=== PATIENT | male | born 1955 | race Caucasian/White ===

== ENCOUNTER 2020-06-04 12:34 | Outpatient (CLI) | payer MEDICARE, OTHER, SELFPAY ==
--- NOTE | 2020-06-04 12:46 | ECHO_ITS ---
Patient Info Name: Simone Weller Age: 65 years : 1955 Gender: Male Ht: 66 in Wt: 298 lbs BSA: 2.59 m2 HR: 65 bpm BP: 139 / 78 mmHg Technical Quality: Good Exam Date: 06/04/2020 12:58 PM Exam Location: [facility] Patient Status: Outpatient Admit Date: 06/04/2020 Staff Ordering Physician: Matt Hernandez DO Restaurant Crew Person: Saima Burnette RDCS Attending Provider: Matt Hernandez DO Referring Physician: David ENAMORADO; Exam Type: CA echo doppler color flow Study Info Indications I35.0 - Nonrheumatic aortic (valve) stenosis Complete two-dimensional, color flow and Doppler transthoracic echocardiogram is performed. Summary 1. Complete two-dimensional, color flow and Doppler transthoracic echocardiogram is performed. 2. Left ventricular chamber dimension is normal. 3. Left ventricular systolic function is normal, estimated at 60-65%. 4. There is moderately increased left ventricular wall thickness. 5. The left ventricular diastolic function is grade I diastolic dysfunction. 6. There is moderate aortic valve sclerosis. 7. There is moderate aortic valve stenosis with a peak velocity of 283 cm/s, mean gradient of 15 mmHg, and aortic valve area of 1.4 cm2. 8. The mitral valve has moderately calcified annulus. 9. There is trace mitral valve regurgitation. 10. There is trace tricuspid valve regurgitation. Left Ventricle Tissue doppler is not performed. Left ventricular chamber dimension is normal. Left ventricular systolic function is normal, estimated at 60-65%. There is moderately increased left ventricular wall thickness. The left ventricular diastolic function is grade I diastolic dysfunction. Right Ventricle Right ventricular chamber dimension is normal. Right ventricular systolic function is normal. Left Atria Left atrial chamber dimension is normal. Right Atria Right atrial chamber dimension is normal. Aortic Valve The aortic valve is trileaflet. There is moderate aortic valve sclerosis. There is moderate aortic valve stenosis with a peak velocity of 283 cm/s, mean gradient of 15 mmHg, and aortic valve area of 1.4 cm2. There is no aortic valve regurgitation. Pulmonic Valve There is no pulmonic regurgitation. Mitral Valve The mitral valve has moderately calcified annulus. There is no mitral valve stenosis. There is trace mitral valve regurgitation. Tricuspid Valve RVSP is not calculated due to an inadequate TR jet. There is trace tricuspid valve regurgitation. Pericardium/Pleural There is no pericardial effusion. Inferior Vena Cava Normal inferior vena cava with >50% collapse upon inspiration consistent with normal right atrial pressure, 5 mmHg. Aorta The aortic root size at the sinus of Valsalva is normal. Left Ventricular Outflow Tract Name Value Normal LVOT 2D LVOT Diameter 2.0 cm LVOT Doppler LVOT Peak Gradient 4 mmHg LVOT Mean Gradient 2 mmHg LVOT VTI 25 cm LVOT VTI/AV VTI Ratio 0.5 LVOT Stroke Volume 77 ml
== END 2020-06-04 12:35 | disposition home or self-care (01) ==
LOC: ANHCARD 12:35
PROVIDERS: PCP Physician Assistant; Visit Provider Internal Medicine Cardiovascular Disease
DX: I35.0 Nonrheumatic aortic (valve) stenosis (principal)
CPT/HCPCS: 93306

== ENCOUNTER 2021-06-23 12:29 | Outpatient (CLI) | payer MEDICARE, SELFPAY ==
--- NOTE | 2021-06-23 12:41 | ECHO_ITS ---
Patient Info Name: Simone Weller Age: 66 years : 1955 Gender: Male Ht: 67 in Wt: 297 lbs BSA: 2.60 m2 HR: 85 bpm BP: 146 / 84 mmHg Heart Rhythm: Sinus Rhythm Technical Quality: Fair Exam Date: 06/23/2021 12:46 PM Exam Location: [facility] Patient Status: Outpatient Admit Date: 06/23/2021 Staff Ordering Physician: Matt Hernandez DO Resource Coordinator: Dottie Toney RDCS Attending Provider: Matt Hernandez DO Referring Physician: David ENAMORADO; Exam Type: CA echo doppler color flow Study Info Indications - nonrheumatic aortic valve stenosis Complete two-dimensional, color flow and Doppler transthoracic echocardiogram is performed. Summary 1. Complete two-dimensional, color flow and Doppler transthoracic echocardiogram is performed. 2. Left ventricular chamber dimension is normal. 3. Left ventricular systolic function is normal, estimated at 65-70%. 4. There is mildly increased left ventricular wall thickness. 5. The left ventricular diastolic function is grade I diastolic dysfunction. 6. E/e' 13 is mildly elevated. 7. There is moderate aortic valve sclerosis. 8. There is moderate aortic valve stenosis with a peak velocity of 316.57 cm/s, mean gradient of 21 mmHg, and aortic valve area of 1.07 cm2. 9. No pulmonary hypertension, estimated pulmonary arterial systolic pressure is 33 mmHg. Left Ventricle E/e' 13 is mildly elevated. Left ventricular chamber dimension is normal. Left ventricular systolic function is normal, estimated at 65-70%. There is mildly increased left ventricular wall thickness. The left ventricular diastolic function is grade I diastolic dysfunction. Right Ventricle Right ventricular systolic function is normal and with normal TAPSE 2.7 cm. Right ventricular chamber dimension is normal. Left Atria Left atrial chamber dimension is normal. Right Atria Right atrial chamber dimension is normal. Aortic Valve The aortic valve is trileaflet. There is moderate aortic valve sclerosis. There is moderate aortic valve stenosis with a peak velocity of 316.57 cm/s, mean gradient of 21 mmHg, and aortic valve area of 1.07 cm2. There is no aortic valve regurgitation. Pulmonic Valve There is no pulmonic regurgitation. Mitral Valve There is no mitral valve stenosis. There is no mitral valve regurgitation. Tricuspid Valve There is no tricuspid valve regurgitation. No pulmonary hypertension, estimated pulmonary arterial systolic pressure is 33 mmHg. Pericardium/Pleural There is no pericardial effusion. Inferior Vena Cava Normal inferior vena cava with >50% collapse upon inspiration consistent with normal right atrial pressure, 5 mmHg. Aorta The aortic root size at the sinus of Valsalva is normal. Left Ventricular Outflow Tract Name Value Normal LVOT 2D LVOT Diameter 1.98 cm LVOT Doppler LVOT Peak Gradient 4 mmHg LVOT Mean Gradient 2 mmHg LVOT VTI 19.19 cm LVOT VTI/AV VTI Ratio 0.35 LVOT Stroke Volume 59.34 ml
== END 2021-06-23 12:30 | disposition home or self-care (01) ==
PROVIDERS: PCP Family Medicine; Visit Provider Internal Medicine Cardiovascular Disease
DX: I35.0 Nonrheumatic aortic (valve) stenosis (principal)
CPT/HCPCS: 93306; C8929

== ENCOUNTER 2021-07-26 00:28 | Day surgery (SDC) | payer MEDICARE, SELFPAY ==
[2021-07-09 15:23] VITALS: BMI 46.9
[2021-07-26 08:21] VITALS: BP 127/70; PULSE 92; RESP 17; TEMP 36.3; O2SAT 96; BMI 47.7
[2021-07-26] MEDS: LACTATED RINGERS 1,000 ML 150 ML IV CONT (08:32)
--- NOTE | 2021-07-26 08:56 | WPDGICN ---
Assessment and Plan Assessment and plan (1) Colon cancer screening: Code(s): Z12.11 - Encounter for screening for malignant neoplasm of colon Status: Acute Assessment and Plan: Patient presents for neoplasia screening colonoscopy. He does have a prior history of colon polyp in 2016. Further recommendations will be given after endoscopy. (2) Obesity: Code(s): E66.9 - Obesity, unspecified Status: Acute Assessment and Plan: Weight loss encouraged. Dietary calorie restriction and increase activity encouraged. GI Consult Note Consult date/time: 07/26/21 08:56 HPI: Simone Weller is a 66 year old male Presents for screening colonoscopy. Patient's current weight appetite bowel movements are normal. He denies abdominal pain. He has had no bleeding. Patient's last colonoscopy 5 years ago revealed a benign colon polyp. Patient's family history is significant his father has had colon polyps. Patient presents today for neoplasia screening. Review of Systems Review of Systems: All systems reviewed & are unremarkable except as noted in HPI and below PMFSH Past Medical History Medical History Elevated blood-pressure reading without diagnosis of hypertension Hyperlipidemia Immunization due Morbid obesity Morbid obesity with BMI of 45.0-49.9, adult Murmur, cardiac Obesity Primary hypertension Surgical History Surgical History History of surgery on wrist History of tonsillectomy and adenoidectomy Family History Family History Father Family history of lung cancer, Onset Age: 59 Grandparent Lung cancer Sibling Diabetes mellitus Social History Social History Smoking status: Never smoker Second hand tobacco smoke exposure: No Alcohol intake: current Alcohol use details: 1 per month. Substance use: never Substance use type: does not use Living arrangements: alone Gender identity (if verbalized by the patient): Male Spiritual care concerns: No Agree to blood products: Yes Meds Home Medications and Allergies Home Medications Medication Instructions Recorded Confirmed Type bnpqqrzq-sdi-tatyg acid 0.4 1 tablet PO DAILY 01/02/20 07/26/21 History mg-lycopene 300 mcg-lutein 250 mcg tablet atorvastatin 20 mg tablet 20 mg PO DAILY #90 tablet 01/05/21 07/26/21 Rx lisinopril 10 mg tablet 10 mg PO DAILY #90 tablet 06/29/21 07/26/21 Rx Allergies Allergy/AdvReac Type Severity Reaction Status Date / Time No Known Allergies Allergy Unknown Verified 07/26/21 08:20 Vital Signs Vital Signs - 24 hr 07/26/21 08:21 Temperature 97.3 F L Pulse Rate 92 Respiratory Rate 17 Blood Pressure 127/70 Pulse Oximetry 96 Exam Narrative: Physical exam reveals patient be alert. Vital signs stable. HEENT exam is unremarkable. Patient is anicteric. Lungs are clear to auscultation and percussion. Heart is without murmur or extra sounds. Abdominal exam is somewhat obese. Bowel sounds are present soft nontender with no organomegaly. Digital external rectal exam is normal.
--- NOTE | 2021-07-26 09:05 | WPDANESEPPF ---
Anes - Initial Pre Proc Eval Procedure: Operation Date: 07/26/21 09:45 Proposed Procedures p Screening Colonoscopy - Erick Cortez MD Date/Time: 07/26/21 09:05 Surgeon: Erick Cortez MD Pre Op Diagnosis: hx of colon polyps Patient Data Age: 66 Gender: M Height: 1.68 m Weight: 134.1 kg Last Vital Signs Temp 97.3 F L 07/26/21 08:21 Pulse 92 07/26/21 08:21 Resp 17 07/26/21 08:21 BP 127/70 07/26/21 08:21 Pulse Ox 96 07/26/21 08:21 Allergies Allergy/AdvReac Type Severity Reaction Status Date / Time No Known Allergies Allergy Unknown Verified 07/26/21 08:20 Home Medications Medication Instructions Recorded Confirmed Type isztbhci-fvi-cpqcn acid 0.4 1 tablet PO DAILY 01/02/20 07/26/21 History mg-lycopene 300 mcg-lutein 250 mcg tablet atorvastatin 20 mg tablet 20 mg PO DAILY #90 tablet 01/05/21 07/26/21 Rx lisinopril 10 mg tablet 10 mg PO DAILY #90 tablet 06/29/21 07/26/21 Rx Patient hx anesthesia problems: none Family hx anesthesia problems: none Results Review: All pre-operative results and documents have been reviewed as part of the pre-operative evaluation. [facility] Past Medical History Medical History Elevated blood-pressure reading without diagnosis of hypertension Hyperlipidemia Immunization due Morbid obesity Morbid obesity with BMI of 45.0-49.9, adult Murmur, cardiac Obesity Primary hypertension Surgical History Surgical History History of surgery on wrist History of tonsillectomy and adenoidectomy Family History Family History Father Family history of lung cancer, Onset Age: 59 Grandparent Lung cancer Sibling Diabetes mellitus Social History Social History Smoking status: Never smoker Second hand tobacco smoke exposure: No Alcohol intake: current Alcohol use details: 1 per month. Substance use: never Substance use type: does not use Living arrangements: alone Gender identity (if verbalized by the patient): Male Spiritual care concerns: No Agree to blood products: Yes Anes - Eval Final PreProcedure Day of Procedure 07/26/21 09:05 Patient weight: morbidly obese Heart: regular rate and rhythm Lungs: clear to auscultation Airway: Mallampati scale class III Neurological: alert and oriented Last oral intake: >/= 8 hours ASA classification: III Emergent: no Anesthetic plan: proceed Anesthesia type and monitoring: general GIVS and standard monitoring Results Review: All pre-operative results and documents have been reviewed as part of the pre-operative evaluation. Informed Consent: The patient's anesthetic plan and its attendant risks and benefits were discussed with the patient/family/POA. Questions were solicited and answers provided to the satisfaction of the patient/family/POA.
[2021-07-26 09:54] VITALS: BP 84/51; PULSE 69; RESP 24; O2SAT 100
[2021-07-26 10:04] VITALS: BP 115/57; PULSE 73; RESP 26; O2SAT 100
[2021-07-26 10:14] VITALS: BP 127/82; PULSE 61; RESP 21; O2SAT 100
== END 2021-07-26 10:25 | disposition home or self-care (01) ==
PROVIDERS: PCP Family Medicine; Visit Provider Internal Medicine Gastroenterology
PROC: 0DJD8ZZ Inspection of Lower Intestinal Tract, Via Natural or Artificial Opening Endoscopic (ICD-10-PCS; CPT 45378; principal; 2021-07-26 09:45)
DX: Z12.11 Encounter for screening for malignant neoplasm of colon (principal); Z86.010 Personal history of colon polyps; K64.8 Other hemorrhoids; K57.30 Diverticulosis of large intestine without perforation or abscess without bleeding; E78.5 Hyperlipidemia, unspecified; R01.1 Cardiac murmur, unspecified; I35.0 Nonrheumatic aortic (valve) stenosis; I11.9 Hypertensive heart disease without heart failure; E66.01 Morbid (severe) obesity due to excess calories; Z68.42 Body mass index [BMI] 45.0-49.9, adult; R03.0 Elevated blood-pressure reading, without diagnosis of hypertension
CPT/HCPCS: G0105; J2704; J7120

== ENCOUNTER 2022-06-16 09:24 | Outpatient (CLI) | payer MEDICARE, SELFPAY ==
--- NOTE | 2022-06-16 10:07 | ECHO_ITS ---
Patient Info Name: Simone Weller Age: 67 years : 1955 Gender: Male Ht: 66 in Wt: 290 lbs BSA: 2.55 m2 HR: 62 bpm BP: 138 / 73 mmHg Technical Quality: Fair Exam Date: 06/16/2022 10:13 AM Exam Location: [facility] Patient Status: Outpatient Admit Date: 06/16/2022 Staff Ordering Physician: Matt Hernandez DO Survey Manager: Saima Burnette RDCS Attending Provider: Matt Hernandez DO Referring Physician: Brittney Hong PA-C; Exam Type: CA echo doppler color flow Study Info Indications I51.89 - Other ill-defined heart diseases Complete two-dimensional, color flow and Doppler transthoracic echocardiogram is performed. Summary 1. Complete two-dimensional, color flow and Doppler transthoracic echocardiogram is performed. 2. Left ventricular chamber dimension is normal. 3. Left ventricular systolic function is normal, estimated at 60-65%. 4. There is mildly increased left ventricular wall thickness. 5. The left ventricular diastolic function is grade I diastolic dysfunction. 6. E/e' 13 is mildly elevated. 7. Global longitudinal strain is mildly abnormal at -16.2%. 8. Left atrial chamber dimension is mildly enlarged. 9. There is moderate aortic valve sclerosis. 10. There is moderate aortic valve stenosis with a peak velocity of 313 cm/s, mean gradient of 21 mmHg, and aortic valve area of 1.3 cm2. 11. There is trace aortic valve regurgitation. 12. The mitral valve has moderately calcified annulus. 13. No pulmonary hypertension, estimated pulmonary arterial systolic pressure is 34 mmHg. Left Ventricle E/e' 13 is mildly elevated. Global longitudinal strain is mildly abnormal at -16.2%. Left ventricular chamber dimension is normal. Left ventricular systolic function is normal, estimated at 60-65%. There is mildly increased left ventricular wall thickness. The left ventricular diastolic function is grade I diastolic dysfunction. Right Ventricle Right ventricular systolic function is normal and with normal TAPSE 2.1 cm. Right ventricular chamber dimension is normal. Left Atria Left atrial chamber dimension is mildly enlarged. Right Atria Right atrial chamber dimension is normal. Aortic Valve The aortic valve is trileaflet. There is moderate aortic valve sclerosis. There is moderate aortic valve stenosis with a peak velocity of 313 cm/s, mean gradient of 21 mmHg, and aortic valve area of 1.3 cm2. There is trace aortic valve regurgitation. Pulmonic Valve There is no pulmonic regurgitation. Mitral Valve The mitral valve has moderately calcified annulus. There is no mitral valve stenosis. There is no mitral valve regurgitation. Tricuspid Valve There is no tricuspid valve regurgitation. No pulmonary hypertension, estimated pulmonary arterial systolic pressure is 34 mmHg. Pericardium/Pleural There is no pericardial effusion. Inferior Vena Cava Normal inferior vena cava with >50% collapse upon inspiration consistent with normal right atrial pressure, 5 mmHg. Aorta The aortic root size at the sinus of Valsalva is normal. Left Ventricular Outflow Tract Name Value Normal LVOT 2D LVOT Diameter 2.0 cm LVOT Doppler
[2022-06-16 10:11] LABS: Anion Gap 8 mmol/L (8-16); Blood Urea Nitrogen 24 mg/dL (9-20); Calcium 9.2 mg/dL (8.4-10.2); Carbon Dioxide 26 mmol/L (22-30); Chloride 104 mmol/L (98-107); Estimated Glomerular Filt Rate > 60; Glucose 99 mg/dL (65-110); Potassium 4.5 mmol/L (3.4-5.0); Sodium 138 mmol/L (137-145)
== END 2022-06-16 09:25 | disposition home or self-care (01) ==
PROVIDERS: PCP Family Medicine; Referring Provider Physician Assistant; Visit Provider Internal Medicine Cardiovascular Disease
DX: E87.5 Hyperkalemia (principal); I51.89 Other ill-defined heart diseases
CPT/HCPCS: 36415; 80048; 93306

== ENCOUNTER 2023-06-13 13:13 | Outpatient (CLI) | payer MEDICARE, SELFPAY ==
[2023-06-13 13:43] LABS: Alanine Aminotransferase 25 U/L (6-50); Albumin Level 4.3 g/dL (3.5-5.1); Alkaline Phosphatase 75 U/L (38-126); Anion Gap 8 mmol/L (8-16); Aspartate Amino Transferase 34 U/L (17-59); Bilirubin,Total 0.6 mg/dL (0.2-1.3); Blood Urea Nitrogen 21 mg/dL (9-20); Calcium 9.5 mg/dL (8.4-10.2); Carbon Dioxide 26 mmol/L (22-30); Chloride 103 mmol/L (98-107); Cholesterol 135 mg/dL (0-200); Estimated Glomerular Filt Rate > 60; Glucose 91 mg/dL (65-110); HDL Direct 36 mg/dL; Potassium 4.8 mmol/L (3.4-5.0); Sodium 137 mmol/L (137-145); Triglycerides 81 mg/dL (<150)
[2023-06-13 13:53] LABS: Hemoglobin A1C 5.9 % (<5.7)
[2023-06-13 13:54] LABS: LDL Cholesterol Direct 78 mg/dL
[2023-06-13 14:14] LABS: Prostate Specific Antigen 0.9 ng/mL (< OR = 4.0)
== END 2023-06-13 13:14 | disposition home or self-care (01) ==
LOC: ANHLAB 13:15
PROVIDERS: Physician Assistant; PCP Family Medicine; Visit Provider Family Medicine
DX: Z12.5 Encounter for screening for malignant neoplasm of prostate (principal); E11.9 Type 2 diabetes mellitus without complications; Z13.1 Encounter for screening for diabetes mellitus; Z13.220 Encounter for screening for lipoid disorders
CPT/HCPCS: 36415; 80053; 80061; 83036; 84153; G0103

== ENCOUNTER 2023-06-29 14:30 | Outpatient (CLI) | payer MEDICARE, SELFPAY ==
--- NOTE | 2023-06-29 14:55 | ECHO_ITS ---
Patient Info Name: Simone Weller Age: 68 years : 1955 Gender: Male Ht: 66 in Wt: 287 lbs BSA: 2.53 m2 HR: 70 bpm BP: 110 / 66 mmHg Technical Quality: Fair Exam Date: 06/29/2023 3:04 PM Exam Location: Echo Lab Patient Status: Outpatient Admit Date: 06/29/2023 Staff Ordering Physician: Matt Hernandez DO Attending Provider: Matt Hernandez DO Referring Physician: David ENAMORADO; Exam Type: CA echo doppler color flow Study Info Indications I35.0 - Nonrheumatic aortic (valve) stenosis Complete two-dimensional, color flow and Doppler transthoracic echocardiogram is performed. Summary 1. Complete two-dimensional, color flow and Doppler transthoracic echocardiogram is performed. 2. Left ventricular chamber dimension is normal. 3. Left ventricular systolic function is normal, estimated at 60-65%. 4. The left ventricular diastolic function is grade I diastolic dysfunction. 5. E/e' 10 is mildly elevated. 6. There is severe aortic valve sclerosis. 7. There is moderate to severe aortic valve stenosis with a peak velocity of 313 cm/s, mean gradient of 20 mmHg, and aortic valve area of 1.1 cm2. 8. There is trace aortic valve regurgitation. 9. The mitral valve has mildly calcified annulus. 10. There is trace tricuspid valve regurgitation. 11. RVSP is not calculated due to an inadequate TR jet. Left Ventricle E/e' 10 is mildly elevated. Left ventricular chamber dimension is normal. Left ventricular systolic function is normal, estimated at 60-65%. The left ventricular diastolic function is grade I diastolic dysfunction. Right Ventricle Right ventricular systolic function is normal and with normal TAPSE 1.9 cm. Right ventricular chamber dimension is normal. Left Atria Left atrial chamber dimension is normal. Right Atria Right atrial chamber dimension is normal. Aortic Valve The aortic valve is trileaflet. There is severe aortic valve sclerosis. There is moderate to severe aortic valve stenosis with a peak velocity of 313 cm/s, mean gradient of 20 mmHg, and aortic valve area of 1.1 cm2. There is trace aortic valve regurgitation. Pulmonic Valve There is no pulmonic regurgitation. Mitral Valve The mitral valve has mildly calcified annulus. There is no mitral valve stenosis. There is no mitral valve regurgitation. Tricuspid Valve There is trace tricuspid valve regurgitation. RVSP is not calculated due to an inadequate TR jet. Pericardium/Pleural There is no pericardial effusion. Inferior Vena Cava Normal inferior vena cava with >50% collapse upon inspiration consistent with normal right atrial pressure, 5 mmHg. Aorta The aortic root size at the sinus of Valsalva is normal. Left Ventricular Outflow Tract Name Value Normal LVOT 2D LVOT Diameter 2.0 cm LVOT Doppler LVOT Peak Gradient 4 mmHg LVOT Mean Gradient 2 mmHg LVOT VTI 22 cm LVOT VTI/AV VTI Ratio 0.4 LVOT Stroke Volume 66 ml LVOT CO 4.6 l/min LVOT CI 1.8 l/min/m2 Pulmonic Valve
== END 2023-06-29 14:31 | disposition home or self-care (01) ==
LOC: ANHCARD 14:31
PROVIDERS: PCP Family Medicine; Visit Provider Internal Medicine Cardiovascular Disease
DX: I35.0 Nonrheumatic aortic (valve) stenosis (principal); R93.1 Abnormal findings on diagnostic imaging of heart and coronary circulation; I35.8 Other nonrheumatic aortic valve disorders; I35.1 Nonrheumatic aortic (valve) insufficiency; I34.81 Nonrheumatic mitral (valve) annulus calcification; I07.1 Rheumatic tricuspid insufficiency
CPT/HCPCS: 93306

== ENCOUNTER 2024-06-19 09:33 | Outpatient (CLI) | payer MEDICARE, SELFPAY ==
--- NOTE | 2024-06-19 09:58 | ECHO_ITS ---
Patient Info Name: Simone Weller Age: 69 years : 1955 Gender: Male Ht: 66 in Wt: 312 lbs BSA: 2.65 m2 HR: 72 bpm BP: 122 / 78 mmHg Heart Rhythm: Sinus Rhythm Technical Quality: Good Exam Date: 06/19/2024 10:12 AM Exam Location: Echo Lab Patient Status: Outpatient Admit Date: 06/19/2024 Staff Ordering Physician: Matt Hernandez DO Manager Automotive: Fide Palacios RDCS Attending Provider: Matt Hernandez DO Referring Physician: David ENAMORADO; Exam Type: CA echo doppler color flow Study Info Indications - Aortic stenosis Complete two-dimensional, color flow and Doppler transthoracic echocardiogram is performed. Summary 1. Complete two-dimensional, color flow and Doppler transthoracic echocardiogram is performed. 2. Left ventricular chamber dimension is normal. 3. Left ventricular systolic function is normal, estimated at 60-65%. 4. The left ventricular diastolic function is grade I diastolic dysfunction. 5. E/e' 18 is elevated. 6. Left atrial chamber dimension is moderately enlarged. 7. There is severe aortic valve sclerosis. 8. There is moderate to severe aortic valve stenosis with a peak velocity of 399 cm/s, mean gradient of 33 mmHg, and aortic valve area of 1.0 cm2. 9. There is trace aortic valve regurgitation. 10. The mitral valve has mildly calcified annulus. 11. There is mild mitral valve regurgitation. 12. There is trace tricuspid valve regurgitation. 13. Moderate pulmonary hypertension, estimated pulmonary arterial systolic pressure is 52 mmHg. Left Ventricle E/e' 18 is elevated. Left ventricular chamber dimension is normal. Left ventricular systolic function is normal, estimated at 60-65%. The left ventricular diastolic function is grade I diastolic dysfunction. Right Ventricle Right ventricular systolic function is normal and with normal TAPSE 2.1 cm. Right ventricular chamber dimension is normal. Left Atria Left atrial chamber dimension is moderately enlarged. Right Atria Right atrial chamber dimension is normal. Aortic Valve The aortic valve is trileaflet. There is severe aortic valve sclerosis. There is moderate to severe aortic valve stenosis with a peak velocity of 399 cm/s, mean gradient of 33 mmHg, and aortic valve area of 1.0 cm2. There is trace aortic valve regurgitation. Pulmonic Valve There is no pulmonic regurgitation. Mitral Valve The mitral valve has mildly calcified annulus. There is no mitral valve stenosis. There is mild mitral valve regurgitation. Tricuspid Valve There is trace tricuspid valve regurgitation. Moderate pulmonary hypertension, estimated pulmonary arterial systolic pressure is 52 mmHg. Pericardium/Pleural There is no pericardial effusion. Inferior Vena Cava Normal inferior vena cava with >50% collapse upon inspiration consistent with normal right atrial pressure, 5 mmHg. Aorta The aortic root size at the sinus of Valsalva is normal. Left Ventricular Outflow Tract Name Value Normal LVOT 2D LVOT Diameter 2.0 cm LVOT Doppler LVOT Peak Velocity 125 cm/s LVOT Peak Gradient 6 mmHg LVOT Mean Gradient 4 mmHg LVOT VTI 29 cm LVOT VTI/AV VTI Ratio 0.3 LVOT Stroke Volume 96 ml LVOT CO 5.4 l/min LVOT CI 2.0 l/min/m2 Pulmonic Valve Name Value Normal PV Doppler PV Peak Velocity 93 cm/s PV Peak Gradient 3 mmHg Mitral Valve Name Value Normal MV Doppler MV Peak Gradient 6 mmHg MV Mean Gradient 2 mmHg MV Decel [place] 444 cm/s2 MV PHT 71 ms MV Area (PHT) 3.1 cm2 4.0-5.0 MV Area (Cont Eq VTI) 2.2 cm2 MV Regurgitation Doppler MR Peak Gradient 121 mmHg MV Diastolic Function MV E Peak Velocity 108 cm/s MV A Peak Velocity 119 cm/s MV E/A 0.9 MV Decel Time 244 ms MV Annular TDI MV Septal e' Velocity 5.3 cm/s >=8.0 MV E/e' (Septal) 20.5 <=8.0 MV Lateral e' Velocity 6.2 cm/s >=10.0 MV E/e' (Lateral) 17.5 <=8.0 MV e' Average 5.72 MV E/e' (Average) 19.0 Tricuspid Valve Name Value Normal TV Regurgitation Doppler TR Peak Velocity 344 cm/s TR Peak Gradient 47 mmHg Estimated PAP/RSVP RA Pressure 5 mmHg <=5 PA Systolic Pressure 52 mmHg <36 RV Systolic Pressure 52 mmHg <36 TV Annular TDI TV Lateral Lenore s' Velocity 11.9 cm/s 9.5-18.7 Aortic Valve Name Value Normal AV Doppler AV Peak Velocity 399 cm/s AV Peak Gradient 64 mmHg AV Mean Gradient 33 mmHg AV VTI 92 cm AV Area (Cont Eq VTI) 1.0 cm2 >=3.0 AV Area (Cont Eq Harry) 1.0 cm2 AV V1/V2 Ratio 0.31 AV Regurgitation 2D LVOT Area 3.3 cm2 AV Regurgitation Doppler AR Decel Time 2,974 ms AR Decel [place] 138 cm/s2 AR PHT 862 ms Ventricles Name Value Normal LV Dimensions 2D/MM IVS Diastolic Thickness (2D) 1.0 cm 0.6-1.0 LVID Diastole (2D) 5.3 cm 4.2-5.8 LVIW Diastolic Thickness (2D) 0.9 cm 0.6-1.0 LVID Systole (2D) 3.9 cm 2.5-4.0 LVOT Diameter 2.0 cm LV Mass (2D Cubed) 183.56 g 88.00-224.00 LV Mass Index (2D Cubed) 69 g/m2 49-115 Relative Wall Thickness (2D) 0.34 LV Fractional Shortening/Ejection Fraction 2D/MM LV Fractional Shortening (2D) 27 % 25-43 LV EF (2D Teicholz) 52 % 52-72 LV Diastolic Volume (4C MOD) 184 ml LV EF (4C MOD) 63 % LV Diastolic Length (4C) 9.1 cm LV Systolic Length (4C) 7.6 cm LV Stroke Volume (4C MOD) 116 ml Atria Name Value Normal LA Dimensions LA Volume (4C A-L) 99 ml RA Dimensions RA Area (4C) 14.0 cm2 <=18.0 Report Signatures
--- OUTSIDE RECORDS SUMMARY | 2024-06-20 22:32 | XMS_ITS | Clinical Summary ---
Author Organization [facility] Address [address], [address] [address] Phone Care Team Providers Care Chief Bank Examiner Name Role Phone Feliz Roca MD Primary Care Provider [phone] Erick Emery DO Unavailable [phone] Allergies No known active allergies Medications Multiple Vitamins-Mineral s (CENTRUM SILVER PO) Take 1 Tab by mouth daily. Active Aspirin 500 MG Tablet Take 1 Tab by mouth as needed. Active famotidine (PEPCID AC MAXIMUM STRENGTH) 20 MG Tablet Take 20 mg by mouth as needed. Active Immunizations Immunization Administration Dates Next Due Covid-19, Mrna, Lnp-s, Pf, 30 Mcg/0.3 Ml Dose (P fizer) 08/11/2020,07/21/2020 Family History Medical History Relation Name Comments Lung Cancer Father Cancer Maternal Uncle Brain Cancer Relation Name Status Comments Father (Age 59) Maternal Uncle Social History Tobacco Use Types Packs/Day Years Used Date Smoking Tobacco: Never Smokeless Tobacco: Never Alcohol Use Standard Drinks/Week Comments Yes 0 (1 standard drink = 0.6 oz pure alcohol) 2-3 drinks per month ofr last 40 years Sex and Gender Information Value Date Recorded Sex Assigned at Not on file Legal Sex Male 10:40 PM CDT Gender Identity Not on file Sexual Orientation Not on file Plan of Treatment Health Maintenance Due Date Last Done Comments Hepatitis C Virus (HCV) Screening 1955 TdaP Immunization 1955 Cologuard 01/22/2004 Immunochemical Fecal Occult Blood 01/22/2004 PSA Discussion 2009 Influenza Immunization (#1) 01/28/202401/28, 03/01/2019, 03/09/2018, Additional history exists SARS-COV-2 Immunization ( season) 2024 02/20/2021, 08/11/2020, 07/21/2020 Colonoscopy 05/19/2026 05/19/2016 Colorectal Cancer Screening 05/19/2026 Respiratory Syncytial Virus (RSV) Immunization (Adult) (1 - 1-dose 75+ series) 2029 05/19/2016 DTaP/Tdap/Td Immunization Discontinued 2018, 05/17/2018, 06/07/2008 Pneumococcal Immunization (50+ years) Completed 03/04/2020, 03/01/2019 Pneumococcal Immunization Combined Discontinued 03/04/2020, 03/01/2019 Zoster Immunization Completed 05/07/2020, 03/04/2020, 03/28/2015 Hepatitis B Immunization Aged Out No longer eligible based on patient's age to complete this topic Meningococcal Immunization (ACWY) Aged Out No longer eligible based on patient's age to complete this topic Rotavirus Immunization Aged Out No lo nger eligible based on patient's age to complete this topic Procedures Procedure Name Priority Date/Time Associated Diagnosis Comments HM COLONOSCOPY Routine 05/19/2016 from Last 3 Months or Most Recently Relevant to Health Maintenance Results * HM COLONOSCOPY (05/19/2016) Feliz Roca MD PROCEDURE/MINOR SURGICAL ORDE JULY Final Result from Last 3 Months or Most Recently Relevant to Health Maintenance Care Teams Chief Bank Examiner Relationship Specialty Start Date End Date Feliz Roca MD [address] [place] [address] PCP - General Family Medicine 05/25/16 Erick Emery DO [address] [place] [id number] Gastroenterology 05/25/16
== END 2024-06-19 09:34 | disposition home or self-care (01) ==
PROVIDERS: PCP Family Medicine; Visit Provider Internal Medicine Cardiovascular Disease
DX: I35.0 Nonrheumatic aortic (valve) stenosis (principal); I08.3 Combined rheumatic disorders of mitral, aortic and tricuspid valves
CPT/HCPCS: 93306